=== PATIENT | female | born 1985 | race Caucasian/White ===

== ENCOUNTER 2020-12-30 15:43 | Emergency (ER) | payer SELFPAY ==
[2020-12-30 15:50] VITALS: BP 125/79; PULSE 82; RESP 17; TEMP 36.9; O2SAT 98; BMI 29.0
[2020-12-30 16:03] VITALS: BP 119/77; PULSE 83; TEMP 36.8; O2SAT 97
--- NOTE | 2020-12-30 16:40 | ECG_ITS ---
[facility] Test Date: 2020-12-30 Pat Name: Cathie Polk Department: Room: Gender: Female Analysis Analyst: : 1985 Requested By: Rajan Doherty Order Number: [id number] Ramu MD: Anisha Byrne M.D. Measurements Intervals [place] Rate: 68 P: 29 CO: 145 QRS: 35 QRSD: 78 T: 50 QT: 384 QTc: 411 Interpretive Statements SINUS RHYTHM Compared to ECG 10/02/2017 23:13:38 Sinus arrhythmia no longer present Electronically Signed On 12-31-2020 9:02:53 CDT by Anisha Byrne M.D. [email or web address]
--- NOTE | 2020-12-30 16:40 | XRR_ITS ---
PROCEDURE INFORMATION: Exam: XR Chest Exam date and time: 12/30/2020 4:40 PM Age: 35 years old Clinical indication: Other: Back pain TECHNIQUE: Imaging protocol: XR of the chest. Views: 2 views. COMPARISON: No relevant prior studies available. FINDINGS: Lungs: The lungs are hyperinflated but clear. No consolidation. There is a 1 cm calcified granuloma lateral left lung. Pulmonary vascularity is within normal limits. Pleural spaces: Unremarkable. No pleural effusion. No pneumothorax. Heart/Mediastinum: Unremarkable. No cardiomegaly. Bones/joints: Unremarkable. XR/XR chest 2V* [id number] IMPRESSION: No acute findings. Calcified pulmonary granuloma is noted.
--- NOTE | 2020-12-30 16:40 | XRR_ITS ---
PROCEDURE INFORMATION: Exam: XR Lumbosacral Spine Exam date and time: 12/30/2020 4:40 PM Age: 35 years old Clinical indication: Low back pain TECHNIQUE: Imaging protocol: XR of the lumbosacral spine. Views: 2 or 3 views. COMPARISON: No relevant prior studies available. FINDINGS: Bones/joints: There are moderate facet degenerative changes at L5-S1. There is slight disc space narrowing at L5-S1 in the remaining disc spaces are preserved. No subluxation. No spondylolysis. No acute fracture. Normal alignment. Soft tissues: Unremarkable. XR/XR lumbar spine 2-3V* [id number] IMPRESSION: No acute findings.
--- NOTE | 2020-12-30 16:58 | ED_ITS ---
HPI - General Adult General: Chief complaint: Neuro Symptoms/Deficit Stated complaint: Pain and tingly on right side of body Time Seen by Provider: 12/30/20 15:58 History of Present Illness: HPI narrative: Patient is a 35-year-old female with no significant past medical history presents the emergency room with complaints of left upper back pain that shoots towards the head and the neck. Patient has pain for started while she was sleeping this morning when she noticed a pop sensation. Patient denies any trauma fall or injury to the back previously recently. Since then, patient has sharp spasming shooting pain from the back to the arm into the neck. Patient denies any history of cardiac issues, social history of smoking, history of aortic diseases including aneurysm, or valvular diseases. In triage note patient noted to have difficulty squeezing, however patient denies ANY reports of weakness or numbness today or prior. No other complaints, nausea/vomiting, diaphoresis, abdominal complaints, fever/chills, or chest pain, shortness of breath or palpitation. Onset: 17 hrs ago Duration:17 hrs Location:home Severity: moderate Review of Systems Narrative: Constitutional: No fever, no chills. HEENT: No vision changes CV: No chest pain, no palpitations PULM: no cough, no dyspnea. GI: No abdominal pain, no N/V/D. : No dysuria MSKEL: No muscle pain, +L upper back pain that radiates to the L arm and neck SKIN: No new rashes, no lesions. NEURO: No headache, no focal weakness. HEME: No visible bruises PSYCH: Normal mood PFSH ED PFSH: Social History Current gender identity: Female Female Reproductive History: Date of last menstrual period: 07/22/20 Physical Exam Narrative: EXAM NARRATIVE: Head: Atraumatic Eyes: PERRL, conjunctiva without injection ENT: Mucous membrane moist NECK: Supple, ROM intact LUNGS: LCTAB, no crackles/rhonchi CV: RRR ABDOMEN: Soft, nontender in all quadrants EXTREMITY: Normal ROM, 2+ radial pulses b/l SKIN: No rash or erythema NEURO: A&O x 3. Sensation intact. Motor strength 5/5 all extremeties. [id number] ? Motor examination? Normal bulk & tone. Strength as follows (R/L): Delts (5/5), Biceps (5/5), Triceps (5/5), Wrist ext (5/5), hip flexors (5/5), plantarflexors (5/5), dorsiflexors (5/5). Sensation? Light Touch: Grossly intact and equal in upper and lower extremities bilaterally? Romberg: Negative.? Distal joint position sense intact ? Gait/stance? Steady, normal narrow base gait with appropriate arm swing and turning.? Tandem gait without hesitation or loss of balance. PSYCH: Normal mood and affect BACK: +mild thoracic T7 level tendernes to palpation, no palpable knots, no step-off, no visible signs of infection Course Vital Signs: Vital signs: Vital Signs Temperature 98.2 F 12/30/20 16:03 Pulse Rate 67 12/30/20 17:13 Respiratory Rate 17 12/30/20 15:50 Blood Pressure 109/85 12/30/20 17:47 Pulse Oximetry 99 12/30/20 17:47 MDM - General Adult MDM Narrative: Medical decision making narrative: Patient is a 35-year-old female who presents to the emergency room with complaints of left thoracic back pain that shoots towards the left arm and neck. On exam, patient has mild tenderness palpation at level of T7. Otherwise no focal neurological deficits noted. EKG showing regular sinus rhythm at HT of [68]. Normal axis. No ST elevations/depressions to suggest coronary occlusion. Normal WV, QRS, QT in tervals. Chest x-ray and thoracic history did not show any signs of acute fracture dislocation or other signs of pulmonary pathologies or vertebral injury. Patient received lidocaine patch, Toradol, and tylenol in the ER with significant improvement in pain. She is fully able to range her shoulders without any difficulty. No suspicion for acute neurological deficits. I have no suspicion for ACS or aortic dissection at this time given consternation of symptoms (no chest pain, family hx, no widened mediastinum, reassuring EKG, no other risk factors). Symptoms today likely musculoskeletal pain. Rx lidocaine patch, norflex, tylenol PRN pain Disposition Discharge. Patient is given strict return precaution for any worsening pain, fever/chills, nausea/vomiting, or any new or concerning com plaints. Patient is also given follow-up with our orthopedic provider. Our corrections caseworker will contact you in the next few days. Imaging Data^: Other Imaging: Radiologist's impression: [address], [place] [address]IVcs ReportSigned Patient: Cathie Polk #: [id number]: 1985Acct# :[id number]/Sex: 35 / FADM Date: 12/30/20Loc: ERRoom/Bed:Attending Dr: Ordering Provider/Ordering MD: Rajan Doherty MD Date of Service: 12/30/20 Procedure(s): XR thoracic spine 2V 37404 Accession Number(s): [id number] Report Number: [id number] PROCEDURE INFORMATION: Exam: XR Thoracic Spine Exam date and time: 12/30/2020 5:09 PM Age: 35 years old Clinical indication: Pain in thoracic spine; Additional info: Evaluate for pain TECHNIQUE: Imaging protocol: XR of the thoracic spine. Views: 3 views. COMPARISON: CR (PELVIS, ) 12/30/2020 4:47 PM FINDINGS: Bones/joints: Normal. No acute fracture. Normal alignment. Soft tissues: Unremarkable. XR/XR thoracic spine 2V 46000 IMPRESSION: No acute findings. Dictated By:Courtney Pierceigned By:Lucas Pierce Date/Time:12/30/20 1734DD/ [address], [place] [address]QVqa ReportSigned Patient: Cathie Polk #: [id number]: 1985Acct#:[id number]/Sex: 35 / FADM Date: 12/30/20Loc: ERRoom/Bed:Attending Dr: Ordering Provider/Ordering MD: Rajan Doherty MD Date of Service: 12/30/20 Procedure(s): XR lumbar spine 2-3V* 82434 Accession Number(s): [id number] Report Number: [id number] PROCEDURE INFORMATION: Exam: XR Lumbosacral Spine Exam date and time: 12/30/2020 4:40 PM Age: 35 years old Clinical indication: Low back pain TECHNIQUE: Imaging protocol: XR of the lumbosacral spine. Views: 2 or 3 views. COMPARISON: No relevant prior studies available. FINDINGS: Bones/joints: There are moderate facet degenerative changes at L5-S1. There is slight disc space narrowing at L5-S1 in the remaining disc spaces are preserved. No subluxation. No spondylolysis. No acute fracture. Normal alignment. Soft tissues: Unremarkable. XR/XR lumbar spine 2-3V* 24052 IMPRESSION: No acute findings. Dictated By:Lucas Pierce By:Lucas Pierce Date/Time:12/30/20 1732DD/ [address] [address]EVcd ReportSigned Patient: Cathie Polk #: [id number]: 1985Acct#:[id number]/Sex: 35 / FADM Date: 12/30/20[facility]Attending Dr: Ordering Provider/Ordering MD: Rajan Doherty MD Date of Service: 12/30/20 Procedure(s): XR chest 2V* 25227 Accession Number(s): [id number] Report Number: [id number] PROCEDURE INFORMATION: Exam: XR Chest Exam date and time: 12/30/2020 4:40 PM Age: 35 years old Clinical indication: Other: Back pain TECHNIQUE: Imaging protocol: XR of the chest. Views: 2 views. COMPARISON: No relevant prior studies available. FINDINGS: Lungs: The lungs are hyperinflated but clear. No consolidation. There is a 1 cm calcified granuloma lateral left lung. Pulmonary vascularity is within normal limits. Pleural spaces: Unremarkable. No pleural effusion. No pneumothorax. Heart/Mediastinum: Unremarkable. No cardiomegaly. Bones/joints: Unremarkable. XR/XR chest 2V* 49670 IMPRESSION: No acute findings. Calcified pulmonary granuloma is noted. Dictated By:Lucas Pierce By:Lucas Pierce Date/Time:12/30/20 1733DD/ 1733 Discharge Plan Discharge Patient Disposition: Home Clinical Impression: Back pain Condition: Stable Prescriptions: New acetaminophen 500 mg tablet 500 mg PO Q6H PRN (Reason: pain) 7 Days Qty: 28 RF: 0 orphenadrine citrate 100 mg tablet extended release 100 mg PO BID PRN (Reason: pain) 7 Days RF: 0 lidocaine 4 % adhesive patch,medicated 1 patch topical DAILY PRN (Reason: pain) 7 Days Qty: 7 RF: 0 Discharge Orders: Discharge ED (Routine); Ordered 12/30/20 Ordered By: Rajan Doherty Referrals: Fernie Murillo MD [Primary Care Provider] - Discharge Diet: Advance as tolerated Discharge Activity: Resume usual activity Patient Instructions: Back Pain (ED) Activity Restrictions/Additional Instructions: Come back to the emergency room if you your pain worsens, if you have any fever or chills, are unable to range her arms, or if you have any new or concerning complaints. Coding Level of Care Code ED Etcher [employer] for Bisi Cheema
[2020-12-30] MEDS: gabapentin 100 mg Capsule 200 MG PO (17:07)
[2020-12-30] MEDS: acetaminophen 500 mg Tablet 1000 MG PO (17:07)
[2020-12-30] MEDS: ketorolac 30 mg/mL INJ IM (17:09)
--- NOTE | 2020-12-30 17:09 | XRR_ITS ---
PROCEDURE INFORMATION: Exam: XR Thoracic Spine Exam date and time: 12/30/2020 5:09 PM Age: 35 years old Clinical indication: Pain in thoracic spine; Additional info: Evaluate for pain TECHNIQUE: Imaging protocol: XR of the thoracic spine. Views: 3 views. COMPARISON: CR (PELVIS, ) 12/30/2020 4:47 PM FINDINGS: Bones/joints: Normal. No acute fracture. Normal alignment. Soft tissues: Unremarkable. XR/XR thoracic spine 2V 70021 IMPRESSION: No acute findings.
[2020-12-30] MEDS: lidocaine 5% Patch 1 PATCH TOPICAL (17:10)
[2020-12-30 17:13] VITALS: PULSE 67; O2SAT 100
[2020-12-30 17:47] VITALS: BP 109/85; O2SAT 99
== END 2020-12-30 17:44 | disposition home or self-care (01) ==
PROVIDERS: Emergency Provider Emergency Medicine; PCP Family Medicine
DX: M54.9 Dorsalgia, unspecified (principal)
CPT/HCPCS: 71046; 72070; 72100; 93005; 96372; 99283; J1885

== ENCOUNTER 2023-12-15 20:27 | Emergency (ER) | payer SELFPAY ==
[2023-12-15 20:32] VITALS: BP 126/81; PULSE 116; RESP 17; TEMP 36.6; O2SAT 98; BMI 25.0
[2023-12-15 20:54] LABS: Charge for UA Resulting for Rev
[2023-12-15 20:59] LABS: Bacteria Urine 1+ /hpf; Hyaline Casts Urine 0-4 /lpf; RBC Urine >100 /hpf (0-2); Squamous Epithelial Cell Urine 0-5 /hpf (0-5); WBC Urine >100 /hpf (0-5)
[2023-12-15 21:08] LABS: Bilirubin Urine 2+ (Negative); Blood Urine 3+ (Negative); Glucose Urine UA Negative (Normal); Ketones Urine Negative (Negative); Leukocyte Esterase Urine 2+ (Negative); Nitrate Urine Positive (Negative); Protein Urine 2+ (Negative); Specific Gravity, Urine 1.011 (1.005-1.030); Urine Appearance Turbid (CLEAR); pH Urine 6.5 (5-7)
[2023-12-15 21:13] LABS: Basophils % 0.4 %; Eosinophils # 0.1 10^3/uL (0.0-0.8); Hematocrit 42.4 % (36-47); Lymphocytes # 2.1 10^3/uL (0.8-4.8); Lymphocytes % 21.4 %; Mean Corpuscular HGB Conc 33.5 g/dL (30-55); Mean Corpuscular Hemoglobin 29.6 pg (27-33); Mean Corpuscular Volume 88.3 fl (85-98); Mean Platelet Volume 10.4 fL (7.4-10.4); Monocytes # 0.6 10^3/uL (0.2-0.9); Monocytes % 6.6 %; Neutrophils # 6.85 10^3/uL (1.8-7.7); Neutrophils % 70.4 %; Nucleated Red Blood Cells % 0 %; Platelet Count 323 10^3/cmm (157-399); Red Cell Distribution Width 11.6 % (12.1-15.1); White Blood Count 9.73 10^3/uL (3.29-11.43)
[2023-12-15 21:14] LABS: Urine Color Red (Yellow)
[2023-12-15 21:16] LABS: Add Urine Culture? Yes
[2023-12-15 21:22] LABS: UA Slide Review UA Slide Review Perf
[2023-12-15 21:32] LABS: Lactic Sepsis W/Reflex 2.1 mmol/L (0.5-2.2)
[2023-12-15 21:36] LABS: Alanine Aminotransferase 9 U/L (0-33); Albumin Level 4.4 g/dL (3.5-5.2); Alkaline Phosphatase 72 U/L (35-105); Anion Gap 16.9 (5-19); Aspartate Amino Transferase 7 U/L (0-32); Blood Urea Nitrogen 9 mg/dL (6-20); Carbon Dioxide 24 mmol/L (22-29); Chloride 102 mmol/L (98-107); Creatinine Clr Calc Pharmacy 86.9032; Globulin 2.9 g/dL (1.3-4.6); Glomerular Filtration Rate 70.8 mL/min (90-130); Glucose 93 mg/dL (65-115); Osmolality Calculated 286 mOsm/kg (285-295); Potassium 3.9 mmol/L (3.5-5.1); Sodium 139 mmol/L (136-145); Total Bilirubin 0.5 mg/dL (0.15-1.2); Total Protein 7.3 g/dL (6.6-8.7)
[2023-12-15 22:58] LABS: Reflex Lactate Order REFLEX LACTIC ORDERD
--- NOTE | 2023-12-15 23:19 | CTR_ITS ---
PROCEDURE INFORMATION: Exam: CT Abdomen And Pelvis With Contrast Exam date and time: 12/15/2023 11:40 PM Age: 38 years old Clinical indication: Abdominal pain; Localized; Right lower quadrant (rlq); Prior surgery; Surgery date: 6+ months; Surgery type: Bilat salpingectomy; Patient HX: C/O rlq pain with excessive vaginal bleeding. States having an abnormally long menstrual cycle going on fifteen days. ; Additional info: Rlq abd pain, profuse vaginal bleeding TECHNIQUE: Imaging protocol: Computed tomography of the abdomen and pelvis with contrast. Radiation optimization: All CT scans at this facility use at least one of these dose optimization techniques: automated exposure control; mA and/or kV adjustment per patient size (includes targeted exams where dose is matched to clinical indication); or iterative reconstruction. Contrast material: OMNI 350; Contrast volume: 100 ml; Contrast route: INTRAVENOUS (IV); COMPARISON: CR XR lumbar spine 2-3V* 10265 12/30/2020 4:47 PM RADIATION DOSE METRICS: Total DLP (mGy-cm): 503.22 FINDINGS: Liver: There is a hypodense structure measuring 2.3 cm in the posterior aspect of the right lobe of the liver measuring 57 Hounsfield units. This is incompletely assessed on this examination and a three-phase liver CT or liver MRI may help to more fully characterize this finding. Gallbladder and biliary ducts: Normal. No calcified stones. No ductal dilation. Pancreas: Normal. No ductal dilation. Spleen: Normal. No splenomegaly. Adrenal glands: Normal. No mass. Kidneys and ureters: Bilateral simple appearing renal cysts are present which do not need further follow-up, as well as other subcentimeter hypodensities which are too small to adequately characterize. Stomach and bowel: Unremarkable. No obstruction. No mucosal thickening. Appendix: No evidence of appendicitis. Intraperitoneal space: Unremarkable. No free air. No significant fluid collection. Vasculature: Unremarkable. No abdominal aortic aneurysm. Lymph nodes: Unremarkable. No enlarged lymph nodes. Urinary bladder: Unremarkable as visualized. Reproductive: There is a 20 mm x 8 mm soft tissue density within the endometrial of the uterus extending from the fundus which may represent a pedunculated fibroid or endometrial lesion. This is incompletely assessed on this examination and a sonohysterogram may be of benefit to more fully characterize this finding. Bones/joints: Unremarkable. No acute fracture. Soft tissues: Unremarkable. CT/CT abdomen pelvis w con* [id number] IMPRESSION: 1. There is a 20 mm x 8 mm soft tissue density within the endometrial of the uterus extending from the fundus which may represent a pedunculated fibroid or endometrial lesion. This is incompletely assessed on this examination and a sonohysterogram may be of benefit to more fully characterize this finding. 2. There is a hypodense structure measuring 2.3 cm in the posterior aspect of the right lobe of the liver measuring 57 Hounsfield units. This is incompletely assessed on this examination and a three-phase liver CT or liver MRI may help to more fully characterize this finding. COMMENTS: Consistent with the [place] [employer]'s Incidental Findings Committee white paper (J Am Sarah Radiol 2018): Any incidental renal lesion less than 1 cm or classified as too small to characterize, or any incidental cystic renal lesion characterized as simple-appearing, is likely benign. No follow-up imaging is recommended for these lesions per consensus recommendations based on imaging criteria.
[2023-12-15 23:24] VITALS: BP 115/77; PULSE 86; RESP 16; O2SAT 99
[2023-12-15] MEDS: iohexol 350 mg/mL 500 mL Btl (per mL) IV (23:37)
[2023-12-15] MEDS: ondansetron 2 mg/ML SDV 2 mL 4 MG IVP (23:37)
[2023-12-15 23:39] VITALS: RESP 16
[2023-12-15] MEDS: morphine 4 mg/mL SDV 1 mL IVP (23:39)
[2023-12-15 23:40] LABS: Lactic Acid level (Lactate) 0.7 mmol/L (0.5-2.2)
--- NOTE | 2023-12-15 23:45 | W.ED.FEMALGU ---
Documented by User: ARABELLA Nicole 12/16/23 00:56 HPI - Female Genitourinary General: Chief complaint: Urogenital-Female Stated complaint: day 15 of period very heavy pain in right in back Time Seen by Provider: 12/15/23 23:04 Source: patient Mode of arrival: ambulatory Limitations: no limitations History of Present Illness: Patient is a 38-year-old female presenting to the emergency department planing of right lower quadrant abdominal pain onset past week. She states that she has been on her menstrual cycle for the past 15 days and it has significantly worsened and gotten more heavy over the past 5 days. She is passing numerous clots to where she states she bleeds through pads constantly. History of salpingectomy, still has her ovaries. Still has her appendix and gallbladder, history of hernia repair. The pain in her right lower quadrant is noted to radiate to her back and down her right lower extremity. She is also reporting nausea and vomiting at this time. No urinary symptoms are reported, no changes in bowel habits, no fevers, and no other symptoms to report at this time. Is requesting something for pain. Onset (ago): week(s) Location of symptoms: RLQ Severity: severe Consistency: constant and progressively worsening Vaginal discharge: none Vaginal bleeding: heavy and clots Associated symptoms: Reports abdominal pain and nausea; Deny headache(s) Patient : No Related Data Previous Rx's Medication Instructions Recorded clonazepam 0.5 mg tablet 0.5 mg PO BID #60 tabs 10/22/23 cefdinir 300 mg capsule 300 mg PO BID 10 days #20 caps 12/16/23 hydrocodone 7.5 mg-acetaminophen 1 tab PO Q8H PRN pain #20 tabs 12/16/23 325 mg tablet medroxyprogesterone 5 mg tablet 5 mg PO DAILY 10 days #10 tabs 12/16/23 (Provera) ondansetron HCl 4 mg tablet 4 mg PO Q8H #30 tabs 12/16/23 Allergies Allergy/AdvReac Type Severity Reaction Status Date / Time vancomycin Allergy caused red Verified 12/15/23 20:37 man syndrome Review of Systems General: Reports: 10 or more systems reviewed and unremarkable except in HPI and below Const: Denies: fever(s), chills, change in appetite, change in weight or diaphoresis ENMT: Denies: throat pain or hoarseness Card: Denies: chest pain, palpitations or lightheadedness Resp: Denies: dyspnea, productive cough or wheezing GI: Reports: abdominal pain, nausea and vomiting; Denies: diarrhea, constipation, bloating, change in stool character or hematochezia : Reports: vaginal bleeding; Denies: flank pain, difficulty voiding, dysuria, urinary frequency or urinary urgency Musc: Reports: back pain; Denies: neck pain Skin/Breast: Denies: rash or new lesions Neuro: Denies: headache(s) or dizziness PFSH ED PFSH: Social History Current gender identity: Female Female Reproductive History: Spontaneous abortions: No Physical Exam Const: COMMON NORMALS: average body habitus, patient oriented x3, no limitations, healthy appearing, alert and well nourished GENERAL APPEARANCE: cooperative and in distress (From pain) ORIENTATION/CONSCIOUSNESS: Yes awake HENMT: COMMON NORMALS: normocephalic, atraumatic, hearing grossly normal bilaterally, external ears normal, Normal external nose present, Normal nasal mucous membranes and turbinates present and moist oral mucous membranes HEAD & SCALP: normocephalic and atraumatic NOSE: Normal external nose present and Normal nasal mucous membranes and turbinates present EXTERNAL EAR: Yes external ears normal Eye: COMMON NORMALS: Equal, round and reactive pupils present, EOMs intact bilaterally, conjunctivae normal and normal visual sanabria by confrontation CONJUNCTIVA: Yes conjunctivae normal PUPIL: Yes Equal, round and reactive pupils present Neck/C-Spine: COMMON NORMALS: full ROM, supple, no meningeal signs and no JVD Resp: COMMON NORMALS: normal respiratory effort, No retractions, No use of accessory muscles and clear to auscultation bilaterally AUSCULTATION: clear to auscultation bilaterally, no crackles, no rales, no rhonchi and no wheezes Cardio: COMMON NORMALS: no JVD, regular rate, regular rhythm, S1 normal heart sound present, S2 normal heart sound present, No gallops present (Cardio), No clicks present (Cardio), No murmurs present (Cardio), No rub (Cardio) and Peripheral pulses 2+ throughout RATE: regular rate RHYTHM: regular rhythm HEART SOUNDS: S1 normal heart sound present and S2 normal heart sound present PERIPHERAL PULSES: Peripheral pulses 2+ throughout GI: COMMON NORMALS: Normal to inspection, nondistended, normoactive bowel sounds present, Soft to palpation, No hepatosplenomegaly present and no masses AUSCULTATION: Yes normoactive bowel sounds PALPATION: Yes Soft to palpation, Yes Tenderness to palpation present (GI) Details: RLQ (Negative Rovsing's), No Guarding due to palpation present (GI), No Rigid due to palpation and Yes No hepatosplenomegaly present RECTAL EXAM: deferred : COMMON NORMALS: Yes no CVA tenderness BLADDER/KIDNEY EXAM: Yes no CVA tenderness Back/Pelvis: COMMON NORMALS: no CVA tenderness Extremity: COMMON NORMALS: normal to inspection and full ROM Neuro: COMMON NORMALS: patient oriented x3, moves all extremities, no focal motor deficits and no sensory deficits noted SENSORIUM/ORIENTATION: Yes alert MENINGEAL SIGNS: Yes no meningeal signs Psych: COMMON NORMALS: mental status grossly normal, cooperative and speech normal SPEECH: Yes normal speech Skin: COMMON NORMALS: no rashes or lesions noted GENERAL SKIN EXAM: no rashes or lesions noted Course Vital Signs: Vital signs: Vital Signs Temperature 98 F 12/15/23 20:32 Pulse Rate 91 12/16/23 01:07 Respiratory Rate 16 12/16/23 01:07 Blood Pressure 114/81 12/16/23 01:07 Pulse Oximetry 99 12/16/23 01:07 Oxygen Delivery Me thod Room Air 12/15/23 23:24 MDM - Female Medical Decision Making This patient presented with going on a week of right lower quadrant abdominal pain as well as copious vaginal bleeding. History of salpingectomy and hernia repair. Vitals on arrival found her to be tachycardic, afebrile, and on examination she did have some tenderness to palpation of the right lower abdomen. Her CBC and CMP unremarkable. Specifically she had a normal hemoglobin and hematocrit. Urinalysis did show quite a bit of blood, nitrates, and white blood cells. CT of the abdomen showed soft tissue mass within the endometrium, likely pedunculated fibroid however this needs to be further assessed with an endometrial biopsy with [facility]. Referral was put in at this time. Patient will be started on Provera for her bleeding, and treated with Zofran and hydrocodone for her nausea and pain, respectively. Will start antibiotics. Return precautions are given. Case discussed with Dr. Cruz who agrees with disposition at this time. Lab Data 12/15/23 20:52 12/15/23 20:52 Radiology Impressions Abdomen/Pelvis CT 12/15/23 23:19 IMPRESSION: 1. There is a 20 mm x 8 mm soft tissue density within the endometrial of the uterus extending from the fundus which may represent a pedunculated fibroid or endometrial lesion. This is incompletely assessed on this examination and a sonohysterogram may be of benefit to more fully characterize this finding. 2. There is a hypodense structure measuring 2.3 cm in the posterior aspect of the right lobe of the liver measuring 57 Hounsfield units. This is incompletely assessed on this examination and a three-phase liver CT or liver MRI may help to more fully characterize this finding. COMMENTS: Consistent with the [employer]'s Incidental Findings Committee white paper (J Am Sarah Radiol 2018): Any incidental renal lesion less than 1 cm or classified as too small to characterize, or any incidental cystic renal lesion characterized as simple-appearing, is likely benign. No follow-up imaging is recommended for these lesions per consensus recommendations based on imaging criteria. Laboratory Results WBC 9.73 10^3/uL (3.29-11.43) 12/15/23 20:52 RBC 4.80 10^6/uL (3.85-5.65) 12/15/23 20:52 Hgb 14.20 g/dL (11.27-16.99) 12/15/23 20:52 Hct 42.4 % (36-47) 12/15/23 20:52 MCV 88.3 fl (85-98) 12/15/23 20:52 MCH 29.6 pg (27-33) 12/15/23 20:52 MCHC 33.5 g/dL (30-55) 12/15/23 20:52 RDW 11.6 % (12.1-15.1) L 12/15/23 20:52 Plt Count 323 10^3/cmm (157-399) 12/15/23 20:52 MPV 10.4 fL (7.4-10.4) 12/15/23 20:52 Neut % (Auto) 70.4 % 12/15/23 20:52 Lymph % (Auto) 21.4 % 12/15/23 20:52 [place] % (Auto) 6.6 % 12/15/23 20:52 Eos % (Auto) 1.0 % 12/15/23 20:52 Baso % (Auto) 0.4 % 12/15/23 20:52 Neut # (Auto) 6.85 10^3/uL (1.8-7.7) 12/15/23 20:52 Lymph # (Auto) 2.1 10^3/uL (0.8-4.8) 12/15/23 20:52 [place] # (Auto) 0.6 10^3/uL (0.2-0.9) 12/15/23 20:52 Eos # (Auto) 0.1 10^3/uL (0.0-0.8) 12/15/23 20:52 Baso # (Auto) 0.0 10^3/uL (0.0-0.1) 12/15/23 20:52 Nucleated RBC % (auto) 0 % 12/15/23 20:52 Nucleated RBCs # 0.0 /100WBC 12/15/23 20:52 Sodium 139 mmol/L (136-145) 12/15/23 20:52 Potassium 3.9 mmol/L (3.5-5.1) 12/15/23 20:52 Chloride 102 mmol/L (98-107) 12/15/23 20:52 Carbon Dioxide 24 mmol/L (22-29) 12/15/23 20:52 Anion Gap 16.9 (5-19) 12/15/23 20:52 BUN 9 mg/dL (6-20) 12/15/23 20:52 Creatinine 0.9 mg/dL (0.5-0.9) 12/15/23 20:52 GFR Calculation 70.8 mL/min (90-130) L 12/15/23 20:52 Glucose 93 mg/dL (65-115) 12/15/23 20:52 Calculated Osmolality 286 mOsm/kg (285-295) 12/15/23 20:52 Lactic Acid 2.1 mmol/L (0.5-2.2) 12/15/23 20:52 Lactic Acid (Sepsis) 0.7 mmol/L (0.5-2.2) 12/15/23 23:21 Calcium 9.0 mg/dL (8.5-10.5) 12/15/23 20:52 Total Bilirubin 0.5 mg/dL (0.15-1.2) 12/15/23 20:52 AST 7 U/L (0-32) 12/15/23 20:52 ALT 9 U/L (0-33) 12/15/23 20:52 Alkaline Phosphatase 72 U/L (35-105) 12/15/23 20:52 Total Protein 7.3 g/dL (6.6-8.7) 12/15/23 20:52 Albumin 4.4 g/dL (3.5-5.2) 12/15/23 20:52 Globulin 2.9 g/dL (1.3-4.6) 12/15/23 20:52 Ser , Semi-Qnt 1.00 mIU/mL 12/15/23 20:52 Urine Color Red (Yellow) A 12/15/23 20:42 Urine Appearance Turbid (CLEAR) A 12/15/23 20:42 Urine pH 6.5 (5-7) 12/15/23 20:42 Ur Specific [place] 1.011 (1.005-1.030) 12/15/23 20:42 Urine Protein 2+ (Negative) A 12/15/23 20:42 Urine Glucose (UA) Negative (Normal) 12/15/23 20: Urine Ketones Negative (Negative) 12/15/23 20:42 Urine Blood 3+ (Negative) A 12/15/23 20:42 Urine Nitrate Positive (Negative) A 12/15/23 20:42 Urine Bilirubin 2+ (Negative) H 12/15/23 20:42 Urine Urobilinogen 1.0 mg/dL (Negative) 12/15/23 20:42 Ur Leukocyte Esterase 2+ (Negative) A 12/15/23 20:42 Urine RBC >100 /hpf (0-2) H 12/15/23 20:42 Urine WBC >100 /hpf (0-5) H 12/15/23 20:42 Ur Squamous Epith Cells 0-5 /hpf (0-5) 12/15/23 20:42 Amorphous Sediment Not Reportable 12/15/23 20:42 Urine Bacteria 1+ /hpf (NONE) H 12/15/23 20:42 Hyaline Casts 0-4 /lpf H 12/15/23 20:42 All radiology interpretation(s) finalized by discharge Discharge Plan Discharge Patient Disposition: Home Clinical Impression: Abnormal uterine bleeding, Lesion of endometrium Condition: Stable Prescriptions: New Provera 5 mg tablet 5 mg PO DAILY 10 Days Qty: 10 0RF Rx Instructions: begin day 16 of cycle ondansetron HCl 4 mg tablet 4 mg PO Q8H Qty: 30 0RF hydrocodone-acetaminophen 7.5-325 mg tablet 1 tab PO Q8H PRN (Reason: pain) Qty: 20 0RF cefdinir 300 mg capsule 300 mg PO BID 10 Days Qty: 20 0RF No Action clonazepam 0.5 mg tablet 0.5 mg PO BID Qty: 60 1RF Discharge Orders: Discharge ED (Routine); Ordered 12/16/23 Ordered By: Philip Bey Referrals: Keiry Noel FNP [Primary Care Provider] - Discharge Diet: Usual diet Discharge Activity: Increase activity as tolerated Patient Instructions: Abnormal (Dysfunctional) Uterine Bleeding (ED), Endometrial Biopsy (DC) Activity Restrictions/Additional Instructions: Follow-up with [facility] next week as discussed. Take pain medications as prescribed. Zofran for nausea. Take Provera as prescribed. If you develop any new or worsening symptoms, please return for reevaluation. Coding Level of Care Code ED [employer] Super[employer] for [place] Documented by User: Jagjit Cruz DO 12/16/23 02:03 HPI - Female Genitourinary General: Chief complaint: Urogenital-Female Stated complaint: day 15 of period very heavy pain in right in back Time Seen by Provider: 12/15/23 23:04 Related Data Previous Rx's Medication Instructions Recorded clonazepam 0.5 mg tablet 0.5 mg PO BID #60 tabs 10/22/23 cefdinir 300 mg capsule 300 mg PO BID 10 days #20 caps 12/16/23 hydrocodone 7.5 mg-acetaminophen 1 tab PO Q8H PRN pain #20 tabs 12/16/23 325 mg tablet medroxyprogesterone 5 mg tablet 5 mg PO DAILY 10 days #10 tabs 12/16/23 (Provera) ondansetron HCl 4 mg tablet 4 mg PO Q8H #30 tabs 12/16/23 Allergies Allergy/AdvReac Type Severity Reaction Status Date / Time vancomycin Allergy caused red Verified 12/15/23 20:37 man syndrome PFSH ED PFSH: Social History Current gender identity: Female Course Vital Signs: Vital signs: Vital Signs Temperature 98 F 12/15/23 20:32 Pulse Rate 91 12/16/23 01:07 Respiratory Rate 16 12/16/23 01:07 Blood Pressure 114/81 12/16/23 01:07 Pulse Oximetry 99 12/16/23 01:07 Oxygen Delivery Me thod Room Air 12/15/23 23:24 MDM - Female Medical Decision Making This patient presented with going on a week of right lower quadrant abdominal pain as well as copious vaginal bleeding. History of salpingectomy and hernia repair. Vitals on arrival found her to be tachycardic, afebrile, and on examination she did have some tenderness to palpation of the right lower abdomen. Her CBC and CMP unremarkable. Specifically she had a normal hemoglobin and hematocrit. Urinalysis did show quite a bit of blood, nitrates, and white blood cells. CT of the abdomen showed soft tissue mass within the endometrium, likely pedunculated fibroid however this needs to be further assessed with an endometrial biopsy with [facility]. Referral was put in at this time. Patient will be started on Provera for her bleeding, and treated with Zofran and hydrocodone for her nausea and pain, respectively. Will start antibiotics. Return precautions are given. Case discussed with Dr. Cruz who agrees with disposition at this time. This patient was originally seen by Mr. Maida PA-C.? I agree with his history, evaluation, and treatment. Lab Data 12/15/23 20:52 12/15/23 20:52 Radiology Impressions Abdomen/Pelvis CT 12/15/23 23:19 IMPRESSION: 1. There is a 20 mm x 8 mm soft tissue density within the endometrial of the uterus extending from the fundus which may represent a pedunculated fibroid or endometrial lesion. This is incompletely assessed on this examination and a sonohysterogram may be of benefit to more fully characterize this finding. 2. There is a hypodense structure measuring 2.3 cm in the posterior aspect of the right lobe of the liver measuring 57 Hounsfield units. This is incompletely assessed on this examination and a three-phase liver CT or liver MRI may help to more fully characterize this finding. COMMENTS: Consistent with the [employer]'s Incidental Findings Committee white paper (J Am Sarah Radiol 2018): Any incidental renal lesion less than 1 cm or classified as too small to characterize, or any incidental cystic renal lesion characterized as simple-appearing, is likely benign. No follow-up imaging is recommended for these lesions per consensus recommendations based on imaging criteria. Laboratory Results WBC 9.73 10^3/uL (3.29-11.43) 12/15/23 20:52 RBC 4.80 10^6/uL (3.85-5.65) 12/15/23 20:52 Hgb 14.20 g/dL (11.27-16.99) 12/15/23 20:52 Hct 42.4 % (36-47) 12/15/23 20:52 MCV 88.3 fl (85-98) 12/15/23 20:52 MCH 29.6 pg (27-33) 12/15/23 20:52 MCHC 33.5 g/dL (30-55) 12/15/23 20:52 RDW 11.6 % (12.1-15.1) L 12/15/23 20:52 Plt Count 323 10^3/cmm (157-399) 12/15/23 20:52 MPV 10.4 fL (7.4-10.4) 12/15/23 20:52 Neut % (Auto) 70.4 % 12/15/23 20:52 Lymph % (Auto) 21.4 % 12/15/23 20:52 [place] % (Auto) 6.6 % 12/15/23 20:52 Eos % (Auto) 1.0 % 12/15/23 20:52 Baso % (Auto) 0.4 % 12/15/23 20:52 Neut # (Auto) 6.85 10^3/uL (1.8-7.7) 12/15/23 20:52 Lymph # (Auto) 2.1 10^3/uL (0.8-4.8) 12/15/23 20:52 [place] # (Auto) 0.6 10^3/uL (0.2-0.9) 12/15/23 20:52 Eos # (Auto) 0.1 10^3/uL (0.0-0.8) 12/15/23 20:52 Baso # (Auto) 0.0 10^3/uL (0.0-0.1) 12/15/23 20:52 Nucleated RBC % (auto) 0 % 12/15/23 20:52 Nucleated RBCs # 0.0 /100WBC 12/15/23 20:52 Sodium 139 mmol/L (136-145) 12/15/23 20:52 Potassium 3.9 mmol/L (3.5-5.1) 12/15/23 20:52 Chloride 102 mmol/L (98-107) 12/15/23 20:52 Carbon Dioxide 24 mmol/L (22-29) 12/15/23 20:52 Anion Gap 16.9 (5-19) 12/15/23 20:52 BUN 9 mg/dL (6-20) 12/15/23 20:52 Creatinine 0.9 mg/dL (0.5-0.9) 12/15/23 20:52 GFR Calculation 70.8 mL/min (90-130) L 12/15/23 20:52 Glucose 93 mg/dL (65-115) 12/15/23 20:52 Calculated Osmolality 286 mOsm/kg (285-295) 12/15/23 20:52 Lactic Acid 2.1 mmol/L (0.5-2.2) 12/15/23 20:52 Lactic Acid (Sepsis) 0.7 mmol/L (0.5-2.2) 12/15/23 23:21 Calcium 9.0 mg/dL (8.5-10.5) 12/15/23 20:52 Total Bilirubin 0.5 mg/dL (0.15-1.2) 12/15/23 20:52 AST 7 U/L (0-32) 12/15/23 20:52 ALT 9 U/L (0-33) 12/15/23 20:52 Alkaline Phosphatase 72 U/L (35-105) 12/15/23 20:52 Total Protein 7.3 g/dL (6.6-8.7) 12/15/23 20:52 Albumin 4.4 g/dL (3.5-5.2) 12/15/23 20:52 Globulin 2.9 g/dL (1.3-4.6) 12/15/23 20:52 Ser , Semi-Qnt 1.00 mIU/mL 12/15/23 20:52 Urine Color Red (Yellow) A 12/15/23 20:42 Urine Appearance Turbid (CLEAR) A 12/15/23 20:42 Urine pH 6.5 (5-7) 12/15/23 20:42 Ur Specific [place] 1.011 (1.005-1.030) 12/15/23 20:42 Urine Protein 2+ (Negative) A 12/15/23 20:42 Urine Glucose (UA) Negative (Normal) 12/15/23 20:42 Urine Ketones Negative (Negative) 12/15/23 20:42 Urine Blood 3+ (Negative) A 12/15/23 20:42 Urine Nitrate Positive (Negative) A 12/15/23 20:42 Urine Bilirubin 2+ (Negative) H 12/15/23 20:42 Urine Urobilinogen 1.0 mg/dL (Negative) 12/15/23 20:42 Ur Leukocyte Esterase 2+ (Negative) A 12/15/23 20:42 Urine RBC >100 /hpf (0-2) H 12/15/23 20:42 Urine WBC >100 /hpf (0-5) H 12/15/23 20:42 Ur Squamous Epith Cells 0-5 /hpf (0-5) 12/15/23 20:42 Amorphous Sediment Not Reportable 12/15/23 20:42 Urine Bacteria 1+ /hpf (NONE) H 12/15/23 20:42 Hyaline Casts 0-4 /lpf H 12/15/23 20:42 Discharge Plan Discharge Patient Disposition: Home Clinical Impression: Abnormal uterine bleeding, Lesion of endometrium Condition: Stable Prescriptions: New Provera 5 mg tablet 5 mg PO DAILY 10 Days Qty: 10 0RF Rx Instructions: begin day 16 of cycle ondansetron HCl 4 mg tablet 4 mg PO Q8H Qty: 30 0RF hydrocodone-acetaminophen 7.5-325 mg tablet 1 tab PO Q8H PRN (Reason: pain) Qty: 20 0RF cefdinir 300 mg capsule 300 mg PO BID 10 Days Qty: 20 0RF No Action clonazepam 0.5 mg tablet 0.5 mg PO BID Qty: 60 1RF Discharge Orders: Discharge ED (Routine); Ordered 12/16/23 Ordered By: Philip Bey Referrals: Keiry Noel FNP [Primary Care Provider] - Discharge Diet: Usual diet Discharge Activity: Increase activity as tolerated Patient Instructions: Abnormal (Dysfunctional) Uterine Bleeding (ED), Endometrial Biopsy (DC) Activity Restrictions/Additional Instructions: Follow-up with [facility] next week as discussed. Take pain medications as prescribed. Zofran for nausea. Take Provera as prescribed. If you develop any new or worsening symptoms, please return for reevaluation. Coding Level of Care Code ED [employer] Supervisor for [employer]
[2023-12-15] MEDS: sodium chloride 0.9% 1,000 ML 999 ML IV (23:56)
[2023-12-16] MEDS: ondansetron 4 MG Tablet PO (00:52)
[2023-12-16] MEDS: medroxyprogesterone 2.5 mg Tablet 5 MG PO (00:52)
[2023-12-16] MEDS: HYDROcodone-acetaminophen 7.5-325 mg Tablet 1 TAB PO (00:53)
--- NOTE | 2023-12-16 01:00 | PC.NURSE ---
Pt sent home with [place] 5/325 and 4mg Zofran per ARABELLA Bey's orders.
[2023-12-16 01:07] VITALS: BP 114/81; PULSE 91; RESP 16; O2SAT 99
--- NOTE | 2023-12-18 08:12 | DCPLANNER ---
Message sent to OBGYN for referral
== END 2023-12-16 01:09 | disposition home or self-care (01) ==
PROVIDERS: Emergency Medicine; Emergency Provider Physician Assistant; PCP Nurse Practitioner
DX: N93.9 Abnormal uterine and vaginal bleeding, unspecified (principal); N85.9 Noninflammatory disorder of uterus, unspecified
CPT/HCPCS: 36415; 74177; 80053; 81003; 81015; 83605; 84702; 85025; 87086; 96374; 96375; 99285; J2270; J2405; J7030; Q0162; Q9967

== ENCOUNTER 2023-12-19 09:56 | Emergency (ER) | payer SELFPAY ==
[2023-12-19 10:06] VITALS: BP 151/78; PULSE 103; RESP 16; TEMP 36.8; O2SAT 100; BMI 25.0
--- NOTE | 2023-12-19 10:31 | W.ED.ABDPA2 ---
HPI - Abdominal Pain General: Chief Complaint: Abdominal Pain Stated Complaint: Lesions/Pain Time Seen by Provider: 12/19/23 10:07 History of Present Illness: 38-year-old female who presents emergency room with abdominal pain. She was worked up for this last week. She was found to have a uterine lesion and was planning to have been follow-up. However her doctor was out of office this week and she went to see another physician there. There is some sort of mixup in her pain medications and the doctor at the clinic such ibuprofen after the emergency room to be written for any more pain medications. She says bleeding has slowed down some. She not have any dizziness or signs of severe anemia. Says mainly she just needs pain control per appointment next week Related Data Previous Rx's Medication Instructions Recorded clonazepam 0.5 mg tablet 0.5 mg PO BID #60 tabs 10/22/23 cefdinir 300 mg capsule 300 mg PO BID 10 days #20 caps 12/16/23 hydrocodone 5 mg-acetaminophen 325 1 tab PO Q6H PRN pain #14 tabs 12/16/23 mg tablet hydrocodone 7.5 mg-acetaminophen 1 tab PO Q8H PRN pain #20 tabs 12/16/23 325 mg tablet medroxyprogesterone 5 mg tablet 5 mg PO DAILY 10 days #10 tabs 12/16/23 (Provera) ondansetron HCl 4 mg tablet 4 mg PO Q8H #30 tabs 12/16/23 hydrocodone 5 mg-acetaminophen 325 1 tab PO Q6H PRN pain #20 tabs 12/19/23 mg tablet Allergies Allergy/AdvReac Type Severity Reaction Status Date / Time vancomycin Allergy caused red Verified 12/15/23 20:37 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 Skin symptoms: Negative except as documented in HPI. Eye symptoms: Negative except as documented in HPI. ENMT symptoms: Negative except as documented in HPI. Respiratory symptoms: Negative except as documented in HPI. Cardiovascular symptoms: Negative except as documented in HPI. Gastrointestinal symptoms: Negative except as documented in HPI. Genitourinary symptoms: Negative except as documented in HPI. Musculoskeletal symptoms: Negative except as documented in HPI. Neurologic symptoms: Negative except as documented in HPI. Psychiatric symptoms: Negative except as documented in HPI. Endocrine symptoms: Negative except as documented in HPI. PFSH ED PFSH: Social History Current gender identity: Female Female Reproductive History: Spontaneous abortions: No Physical Exam Narrative: EXAM NARRATIVE: General: Alert, no acute distress. Skin: Warm, dry. Head: Normocephalic, atraumatic. Neck: Supple, trachea midline. Eye: Extraocular movements are intact. Ears, nose, mouth and throat: mucosa moist. Cardiovascular: Regular, Normal peripheral perfusion. Respiratory: Lungs are clear to auscultation, respirations are non-labored, breath sounds are equal, Symmetrical chest wall expansion. Gastrointestinal: Soft, Nontender, Non distended Musculoskeletal: Normal ROM, no deformity. Neurological: Alert and oriented, No focal neurological deficit observed. Psychiatric: Cooperative, appropriate mood & affect. Course Vital Signs: Vital signs: Vital Signs Temperature 98.3 F 12/19/23 10:06 Pulse Rate 103 H 12/19/23 10:06 Respiratory Rate 16 12/19/23 10:06 Blood Pressure 151/78 12/19/23 10:06 Pulse Oximetry 100 12/19/23 10:06 MDM - Abdominal Pain Medical Decision Making Assessment and plan: Abdominal pain Dysfunctional uterine bleeding Uterine lesion - Discharged home - Discussed plan with patient. Answered any questions. - Evaluation and treatment of this problem were appropriate in the emergency setting. No radiology studies performed this visit Discharge Plan Discharge Patient Disposition: Home Clinical Impression: Abnormal uterine bleeding, Lesion of endometrium Condition: Stable Prescriptions: New hydrocodone-acetaminophen 5-325 mg tablet 1 tab PO Q6H PRN (Reason: pain) Qty: 20 0RF No Action clonazepam 0.5 mg tablet 0.5 mg PO BID Qty: 60 1RF Provera 5 mg tablet 5 mg PO DAILY 10 Days Qty: 10 0RF Rx Instructions: begin day 16 of cycle ondansetron HCl 4 mg tablet 4 mg PO Q8H Qty: 30 0RF hydrocodone-acetaminophen 7.5-325 mg tablet 1 tab PO Q8H PRN (Reason: pain) Qty: 20 0RF cefdinir 300 mg capsule 300 mg PO BID 10 Days Qty: 20 0RF hydrocodone-acetaminophen 5-325 mg tablet 1 tab PO Q6H PRN (Reason: pain) Qty: 14 0RF Discharge Orders: Discharge ED (Routine); Ordered 12/19/23 Ordered By: Misty Kim Referrals: Keiry Noel FNP [Primary Care Provider] - Discharge Diet: Usual diet Discharge Activity: Increase activity as tolerated Patient Instructions: Abnormal (Dysfunctional) Uterine Bleeding (ED) Activity Restrictions/Additional Instructions: Thank you for choosing [facility] for your healthcare needs today. Please realize this is an emergency room and that we are providing you with a medical screening exam and this may not be complete and all inclusive of all the testing and or work up that you may need to determine your ailment or severity of your illness. You have been screened and evaluated and felt safe for discharge. Health conditions do change or evolve sometimes and as such it is important that you follow up with your Primary Doctor to be re checked, 3-5 days is a general good time frame for follow up. You are always welcome to return to the ED for re assessment if your symptoms are worsening or you have new concerns Coding Level of Care Code ED Tractor Crane Engineer for Bisi Cheema
[2023-12-19 10:39] VITALS: BP 120/74; PULSE 81; RESP 16; O2SAT 98
== END 2023-12-19 10:40 | disposition home or self-care (01) ==
PROVIDERS: Emergency Provider Emergency Medicine; PCP Nurse Practitioner
DX: N93.9 Abnormal uterine and vaginal bleeding, unspecified (principal); N85.9 Noninflammatory disorder of uterus, unspecified
CPT/HCPCS: 99283

== ENCOUNTER → 2023-12-24 10:40 | Outpatient (BNVA) | payer SELFPAY | PROVIDERS: PCP Nurse Practitioner; Visit Provider Nurse Practitioner | DX: N92.0 Excessive and frequent menstruation with regular cycle (principal) | CPT/HCPCS: 85025 ==

== ENCOUNTER 2023-12-27 08:23 | Outpatient (CLI) | payer SELFPAY ==
--- NOTE | 2023-12-27 08:30 | CT_ITS ---
WS: [id number] CT ABDOMEN WITH CONTRAST, multiphase HISTORY: K76.9 - Liver disease, unspecified Multiphase pre and postcontrast imaging through the abdomen. Oral contrast has not been provided. Cor onal and sagittal reformats are submitted. All CT scans at [facility] use at least one of the se dose optimization techniques: automated exposure control; mA and/or kV adjustment per patient size (includes targeted exams where dose is matched to clinical indication); or iterative reconstruction. IV CONTRAST: Omnipaque 350; 100 mL IV. Oral contrast: No DLP: 1162.64 mGy.cm COMPARISON: 12/15/2023 Lower thorax: Lung bases are clear. Heart is normal size. Small hiatal hernia. Liver/biliary system: Liver is normal size. Mild coarse echotexture throughout the liver. There are s everal low-attenuation masses within the liver on the noncontrast exam. Low-attenuation mass in the l ateral segment of the LEFT lobe measures 1.7 x 1.4 cm. The units are elevated but there is minimal en hancement on the postcontrast exam. There are a few additional too small to characterize hypodensitie s. There is also a hemangioma in the LEFT lobe and in the posterior RIGHT lobe. Posterior RIGHT lobe hemangioma measures 2.7 x 1.4 cm. Normal portal vein. Gallbladder is negative. Normal spleen. No adrenal mass. There are tiny hypodensities within each kid randi which are probably cysts. Normal aorta and mesenteric arteries. Noncontrast evaluation of the GI tract is negative. There is no obstruction. CT/CT abdomen wo/w con [id number] IMPRESSION: 1. Multiple liver lesions identified. Some of these are too small to character ize and probably cysts. There are 2 hepatic hemangiomas. 2. Low-attenuation mass in the lateral segment LEFT lobe of the liver measures 1.7 x 1.4 cm. Hounsfield units are elevated but there is no significant amount of enhancement on the postcontrast study. Favor this is probably a complex cys t. With no history of malignancy less likely metastatic disease. Recommend ultr asound evaluation to attempt documentation of a cyst. If documentation by ultra sound is not sufficient 3-month hepatic CT follow-up recommended.
[2023-12-27] MEDS: iohexol 350 mg/mL 500 mL Btl (per mL) IV (08:59)
== END 2023-12-27 08:24 | disposition home or self-care (01) ==
LOC: RAD 08:25
PROVIDERS: PCP Nurse Practitioner; Visit Provider Nurse Practitioner
DX: D18.03 Hemangioma of intra-abdominal structures (principal); R16.0 Hepatomegaly, not elsewhere classified; K76.9 Liver disease, unspecified
CPT/HCPCS: 74170; Q9967

== ENCOUNTER → 2024-01-28 10:16 | Outpatient (BNVA) | payer SELFPAY | PROVIDERS: PCP Nurse Practitioner; Visit Provider Nurse Practitioner | DX: K76.0 Fatty (change of) liver, not elsewhere classified (principal) | CPT/HCPCS: 80053; 85025 ==

== ENCOUNTER → 2024-02-18 10:29 | Outpatient (BNVA) | payer SELFPAY | PROVIDERS: PCP Nurse Practitioner; Visit Provider Obstetrics & Gynecology | DX: D25.2 Subserosal leiomyoma of uterus (principal); N83.201 Unspecified ovarian cyst, right side; N92.6 Irregular menstruation, unspecified; N93.9 Abnormal uterine and vaginal bleeding, unspecified; R93.89 Abnormal findings on diagnostic imaging of other specified body structures | CPT/HCPCS: 76830 ==

== ENCOUNTER 2024-02-28 07:08 | Day surgery (SDC) | payer SELFPAY ==
[2024-02-28] VITALS (10 sets, daily range): BP systolic 109–129; BP diastolic 65–87; PULSE 67–118; RESP 14–22; TEMP 36.3–37.3; O2SAT 95–98; BMI 25.8
--- NOTE | 2024-02-28 02:21 | W.PM.OPSFHP ---
Same Day Surgery H&P Indication for Procedure/HPI DATE OF PROCEDURE: February 28, 2024 CHIEF COMPLAINT/INDICATIONFOR SURGICAL PROCEDURE: abnormal uterine bleeding endometrial polyp PREOP DIAGNOSIS: abnormal uterine bleeding; endometrial polyp PLANNED PROCEDURE: Operation Date: 02/28/24 08:50 Proposed Procedures p Hysteroscopy Hysteroscopy w/ Endometrial Sampling 98410, N93.9(Not Applicable) - Krunal Sarmiento MD s Possible endometrial Poylpectomy(Not Applicable) - Krunal Sarmiento MD 38 y.o. h/o BTL with history of abnormal uterine bleeding x one year and endometrial polyp seen on pelvic sono Medications/Allergies* Allergies/Adverse Reactions Allergy/AdvReac Type Severity Reaction Status Date / Time tramadol Allergy Unknown Verified 02/27/24 10:28 vancomycin Allergy caused red Verified 02/27/24 10:25 man syndrome Pertinent History/Comorbid Conditions* Family History (Updated 01/16/24 @ 15:03 by Alvina Todd LPN) Heart disease Grandmother Hypertension Mother Uterine cancer Mother Grandmother Denies family history of Colon cancer Ovarian cancer Prostate cancer Diabetes Breast cancer Thyroid disease Stroke Social History Smoking and tobacco/nicotine status: current every day tobacco/nicotine user Alcohol intake: never Current gender identity: Female Pertinent Exam Findings alert, oriented x 3, clear to auscultation bilaterally and regular rate & rhythm Recommendations Surgery/Procedure today Coding Level of Care Code Acute Code for Chg Fwd Time Spent (min) 20
[2024-02-28] MEDS: sodium chloride 0.9% 1,000 ML 30 ML IV (07:47)
[2024-02-28 08:22] LABS: OR HCG Qualitative Urine Negative (Negative)
--- NOTE | 2024-02-28 09:36 | W.PM.OPSUD ---
Surgery/Procedure H&P Update DATE OF PROCEDURE: February 28, 2024 DATE H&P PERFORMED: 02/27/24 H&P UPDATE INFORMATION: I have reviewed H&P completed within last 30 days, I have examined patient prior to procedure and No changes to prior documentation PREOP DIAGNOSIS: abnormal uterine bleeding PLANNED PROCEDURE: Operation Date: 02/28/24 08:50 Proposed Procedures p Hysteroscopy Hysteroscopy w/ Endometrial Sampling 67899, N93.9(Not Applicable) - Krunal Sarmiento MD s Possible endometrial Poylpectomy(Not Applicable) - Krunal Sarmiento MD
--- NOTE | 2024-02-28 09:47 | ANES.PREANE2 ---
Pre-Anesthetic Assessment Height/Weight: Height 5 ft 6 in Weight 160 lb Temp Pulse Resp BP Pulse Ox O2 Del Method 97.3 F L 84 16 126/76 98 Room Air 02/28/24 07:21 02/28/24 07:21 02/28/24 07:21 02/28/24 07:21 02/28/24 07:21 02/28/24 07:28 Preop Diagnosis: abnormal uterine bleeding Operation Date: 02/28/24 08:50 Proposed Procedures p Hysteroscopy Hysteroscopy w/ Endometrial Sampling 47862, N93.9(Not Applicable) - Krunal Sarmiento MD s Possible endometrial Poylpectomy(Not Applicable) - Krunal Sarmiento MD Was Beta Raúl taken within 24 hours: N/A Was Clonidine taken within 24 hours: N/A Last intake: Intake Last Liquid Date 02/28/24 Last Liquid Time 06:00 Last Solid Date 02/27/24 Last Solid Time 23:00 Social Tobacco and No alcohol Exam alert, oriented x 3, clear to auscultation bilaterally and regular rate & rhythm Airway Submandibular: within normal limits Cervical ROM: within normal limits Mallampati: Class II Dentition: full Anesthetic Plan ASA status: 2 Anesthesia: General Other: Patient woke up during colonoscopy, very traumatized from this experience NPO since yesterday Currently experiencing menorrhagia, states that she will bleed for 40 days when her period starts Labs 01/28/2024 reviewed hemoglobin 14.3 at that time Current smoker Denies any cardiac issues METs greater than 4 Plan for general anesthesia Medications/Allergies Home Medications Medication Instructions Recorded Confirmed Last Taken Type clonazepam 0.5 mg tablet 0.5 mg PO BID #60 tabs 01/10/24 02/27/24 02/26/24 Rx ondansetron HCl 4 mg tablet 4 mg PO Q8H #30 tabs 01/28/24 02/27/24 Unknown Rx Allergies Allergy/AdvReac Type Severity Reaction Status Date / Time tramadol Allergy Unknown Verified 02/27/24 10:28 vancomycin Allergy caused red Verified 02/27/24 10:25 man syndrome Current Medications Generic Name Dose Route Start Last Admin Trade Name Freq PRN Reason Stop Dose Admin Sodium Chloride 1,000 mls @ 30 mls/hr 02/28/24 07:15 02/28/24 07:47 Sodium Chloride 0.9% IV 02/29/24 07:14 30 mls/hr .Q24H PAULETTE Administration PFSH Anesthesia Family History Mother Uterine cancer Hypertension Grandmother Uterine cancer Heart disease Denies family history of Colon cancer Ovarian cancer Prostate cancer Diabetes Breast cancer Thyroid disease Stroke Social History (Updated 02/01/24 @ 09:40 by LEXY Serna) Smoking and tobacco/nicotine status: current every day tobacco/nicotine user Alcohol intake: never Current gender identity: Female Female Reproductive History Spontaneous abortions: No Data Anesthesia Cardiac Studies: No Data to Display
--- NOTE | 2024-02-28 10:07 | PM.OP ---
Operative Report Date of procedure: February 28, 2024 Pre-op diagnosis: abnormal uterine bleeding Post-op diagnosis: abnormal uterine bleeding 2-3 cm endometrial polyp Post-op findings: one 2-3 cm endometrial polyp Minimal endometrial tissue Procedure done: Hysteroscopy Endometrial sampling and polypectomy with Myosure Implants: none Specimens removed/disposition: endometrial tissue Surgeon: Krunal Sarmiento MD Anesthesia: MAC Estimated blood loss (mL): 0 Complications: none Findings: one 2-3 cm endometrial polyp Minimal endometrial tissue Condition: stable Disposition: PACU Brief History: 38 y.o. with abnormal uterine bleeding Procedure: Informed consent signed. Patient was taken to the operating room. Anesthesia was induced. Patient was placed in dorsolithotomy position, prepped and draped for hysteroscopy. A bivalve speculum was placed in the vagina. The cervix and vagina were normal. The anterior lip of the cervix was grasped with a sharp-toothed tenaculum. The cervix was serially dilated with Hegar dilators. The uterus was sounded to 8 cm. A hysteroscope was placed into the endometrial cavity. There was one 3 cm smooth-appearing endometrial polyp. Minimal endometrial tissue was seen. The endocervical canal was normal. The endometrial cavity was otherwise normal. A Myosure was then inserted and the endometrial polyp was removed and sent to pathology. Endometrial sampling was also done. The endometrial cavity was seen to be intact. The hysteroscope and Myosure were then removed. Endometrial tissue was sent to pathology. The sharp-toothed tenaculum was removed. There was no bleeding from the endometrial cavity or cervix. The patient was then placed supine and awakened and taken to the PACU. Postop condition: stable EBL: none Sponge and instruments counts were normal x 2 Complications: none
[2024-02-28] MEDS: fentaNYL 50 mcg/mL INJ 2mL IVP (11:19)
[2024-02-28] MEDS: HYDROcodone-acetaminophen 5-325 mg Tablet 1 TAB PO (12:01)
--- NOTE | 2024-02-28 12:43 | ANE.PACU2 ---
Inpatient post-anesthesia follow up: Airway intact: Yes Vital signs: Temperature 98.7 F Pulse Rate 67 Respiratory Rate 16 Blood Pressure 123/78 Pulse Oximetry 98 Oxygen Delivery Me thod Room Air Oxygen Flow Rate 8 Fraction of Inspir ed Oxygen Hydration adequate: Yes Nausea and vomiting: No Pain level: 1 Mental status: Baseline
== END 2024-02-28 12:44 | disposition home or self-care (01) ==
PROVIDERS: Student in an Organized Health Care Education/Training Program; PCP Nurse Practitioner; Visit Provider Obstetrics & Gynecology
PROC: 0UJD8ZZ Inspection of Uterus and Cervix, Via Natural or Artificial Opening Endoscopic (ICD-10-PCS; CPT 58555; principal; 2024-02-28 08:40)
PROC: (CPT 58558; 2024-02-28 08:40)
DX: N93.9 Abnormal uterine and vaginal bleeding, unspecified (principal); N84.0 Polyp of corpus uteri; F17.200 Nicotine dependence, unspecified, uncomplicated
CPT/HCPCS: 58558; 81025; 88305; J1100; J1200; J1885; J2250; J2405; J2704; J3010; J7030

== ENCOUNTER 2024-03-07 22:58 | Emergency (ER) | payer SELFPAY ==
[2024-03-07 23:01] VITALS: BP 150/72; PULSE 154; RESP 22; TEMP 36.7; O2SAT 99; BMI 25.2
[2024-03-07 23:34] LABS: Basophils % 0.4 %; Eosinophils # 0.1 10^3/uL (0.0-0.8); Eosinophils % 1.1 %; Hematocrit 41.4 % (36-47); Lymphocytes # 2.4 10^3/uL (0.8-4.8); Lymphocytes % 23.7 %; Mean Corpuscular HGB Conc 34.1 g/dL (30-55); Mean Corpuscular Hemoglobin 28.8 pg (27-33); Mean Corpuscular Volume 84.7 fl (85-98); Mean Platelet Volume 10.4 fL (7.4-10.4); Monocytes # 0.8 10^3/uL (0.2-0.9); Monocytes % 7.9 %; Neutrophils % 66.7 %; Nucleated Red Blood Cells % 0 %; Platelet Count 321 10^3/cmm (157-399); Red Blood Count 4.89 10^6/uL (3.85-5.65); Red Cell Distribution Width 11.4 % (12.1-15.1)
[2024-03-07 23:40] VITALS: BP 106/82; PULSE 97; RESP 16; O2SAT 99
[2024-03-07 23:45] LABS: INR 0.99 (0.8-1.2)
--- NOTE | 2024-03-07 23:47 | W.ED.FEMALGU ---
HPI - Female Genitourinary General: Chief complaint: Vaginal Bleeding Stated complaint: [address] SARMIENTO op severe heavy bleeding Time Seen by Provider: 03/07/24 23:18 History of Present Illness: Patient had a hysteroscopy with fibroidectomy approximately days ago by Dr. Sarmiento. Patient said she was okay the first day but then started having heavy bleeding after that. Patient is now getting lightheaded dizzy when she stands up and her heart starting to race. Patient was going through 1 pad an hour but has gone through 3 pads in the last hour. Related Data Previous Rx's Medication Instructions Recorded clonazepam 0.5 mg tablet 0.5 mg PO BID #60 tabs 01/10/24 ondansetron HCl 4 mg tablet 4 mg PO Q8H #30 tabs 01/28/24 oxycodone-acetaminophen 5 mg-325 1 tab PO BID PRN pain #14 tabs 02/28/24 mg tablet (Percocet) Allergies Allergy/AdvReac Type Severity Reaction Status Date / Time tramadol Allergy Unknown Verified 03/07/24 23:00 vancomycin Allergy caused red Verified 03/07/24 23:00 man syndrome Review of Systems General: Reports: 10 or more systems reviewed and unremarkable except in HPI and below PFSH ED PFSH: Family History Mother Uterine cancer Hypertension Grandmother Uterine cancer Heart disease Denies family history of Colon cancer Ovarian cancer Prostate cancer Diabetes Breast cancer Thyroid disease Stroke Social History Smoking and tobacco/nicotine status: current every day tobacco/nicotine user Alcohol intake: never Current gender identity: Female Female Reproductive History: Spontaneous abortions: No Physical Exam Const: COMMON NORMALS: no acute distress, average body habitus, patient oriented x3, no limitations, healthy appearing, alert and well nourished HENMT: COMMON NORMALS: normocephalic, atraumatic, hearing grossly normal bilaterally, external ears normal, Normal external nose present and moist oral mucous membranes HEAD & SCALP: normocephalic and atraumatic NOSE: Normal external nose present EXTERNAL EAR: Yes external ears normal Neck/C-Spine: COMMON NORMALS: full ROM, no lymphadenopathy, supple, no meningeal signs, no JVD and Thyroid normal THYROID: Thyroid normal Chest: COMMONS NORMALS: normal inspection of the chest and normal palpation of entire chest wall Resp: COMMON NORMALS: normal respiratory effort, No retractions, No use of accessory muscles and clear to auscultation bilaterally AUSCULTATION: clear to auscultation bilaterally Cardio: COMMON NORMALS: no JVD, regular rate, regular rhythm, S1 normal heart sound present, S2 normal heart sound present, No gallops present (Cardio), No clicks present (Cardio), No murmurs present (Cardio) and No rub (Cardio) RATE: regular rate RHYTHM: regular rhythm HEART SOUNDS: S1 normal heart sound present and S2 normal heart sound present GI: COMMON NORMALS: Normal to inspection, nondistended, normoactive bowel sounds present, Soft to palpation, No hepatosplenomegaly present and no masses PALPATION: Yes Soft to palpation and Yes No hepatosplenomegaly present Neuro: COMMON NORMALS: patient oriented x3 SENSORIUM/ORIENTATION: Yes alert MENINGEAL SIGNS: Yes no meningeal signs Course Vital Signs: Vital signs: Vital Signs Temperature 98.0 F 03/07/24 23:01 Pulse Rate 76 03/08/24 00:25 Respiratory Rate 16 03/08/24 00:25 Blood Pressure 127/73 03/08/24 00:25 Pulse Oximetry 100 03/08/24 00:25 Oxygen Delivery Me thod Room Air 03/08/24 00:25 MDM - Female Medical Decision Making Upon further talking the patient patient going through divorce and has had having a very stressful episode now. Results was discussed with the patient had a were normal. Patient's hemoglobin was 14.1. Patient started crying hysterically and said nobody wants to do anything for her I told her we called the OB on-call but they probably just tell her to follow-up with her OB who is Dr. Sarmiento on Sunday. She says she just wants to leave. She is wants us to discharge her and patient will be discharged. Medical Records I reviewed the patient's medical records. Lab Data I reviewed the patient's lab results. 03/07/24 23:28 03/07/24 23:28 Laboratory Results WBC 10.20 10^3/uL (3.29-11.43) 03/07/24 23:28 RBC 4.89 10^6/uL (3.85-5.65) 03/07/24: Hgb 14.10 g/dL (11.27-16.99) 03/07/24: Hct 41.4 % (36-47) 03/07/24: MCV 84.7 fl (85-98) L 03/07/24: MCH 28.8 pg (27-33) 03/07/24: MCHC 34.1 g/dL (30-55) 03/07/24: RDW 11.4 % (12.1-15.1) L 03/07/24: Plt Count 321 10^3/cmm (157-399) 03/07/24 MPV 10.4 fL (7.4-10.4) 03/07/24 Neut % (Auto) 66.7 % 03/07/24: Lymph % (Auto) 23.7 % 03/07/24: [place] % (Auto) 7.9 % 03/07/24: Eos % (Auto) 1.1 % 03/07/24: Baso % (Auto) 0.4 % 03/07/24 Neut # (Auto) 6.80 10^3/uL (1.8-7.7) 03/07/24 Lymph # (Auto) 2.4 10^3/uL (0.8-4.8) 03/07/24: [place] # (Auto) 0.8 10^3/uL (0.2-0.9) 03/07/24: Eos # (Auto) 0.1 10^3/uL (0.0-0.8) 03/07/24 Baso # (Auto) 0.0 10^3/uL (0.0-0.1) 03/07/24: Nucleated RBC % (auto) 0 % 03/07/24 Nucleated RBCs # 0.0 /100WBC 03/07/24: PT 13.40 SECONDS (12.1-14.9) 03/07/24: INR 0.99 (0.8-1.2) 03/07/24: Sodium 133 mmol/L (136-145) L 11/08/24 23:28 Potassium 3.4 mmol/L (3.5-5.1) L 03/07/24 23:28 Chloride 98 mmol/L (98-107) 03/07/24 23:28 Carbon Dioxide 21 mmol/L (22-29) L 03/07/24 23:28 Anion Gap 17.4 (5-19) 03/07/24 23:28 BUN 11 mg/dL (6-20) 03/07/24 23:28 Creatinine 0.8 mg/dL (0.5-0.9) 03/07/24 23:28 GFR Calculation 81.2 mL/min (90-130) L 03/07/24 23:28 Glucose 114 mg/dL (65-115) 03/07/24 23:28 Calculated Osmolality 276 mOsm/kg (285-295) L 03/07/24 23:28 Calcium 8.8 mg/dL (8.5-10.5) 03/07/24 23:28 Total Bilirubin 0.9 mg/dL (0.15-1.2) 03/07/24 23:28 AST 8 U/L (0-32) 03/07/24 23:28 ALT 11 U/L (0-33) 03/07/24 23:28 Alkaline Phosphatase 72 U/L (35-105) 03/07/24 23:28 Total Protein 6.8 g/dL (6.6-8.7) 03/07/24 23:28 Albumin 4.6 g/dL (3.5-5.2) 03/07/24 23:28 Globulin 2.2 g/dL (1.3-4.6) 03/07/24 23:28 No radiology studies performed this visit Discharge Plan Discharge Patient Disposition: Home Clinical Impression: Postoperative vaginal bleeding Condition: Stable Prescriptions: No Action ondansetron HCl 4 mg tablet 4 mg PO Q8H Qty: 30 0RF clonazepam 0.5 mg tablet 0.5 mg PO BID Qty: 60 1RF oxycodone-acetaminophen [Percocet] 5-325 mg tablet 1 tab PO BID PRN (Reason: pain) Qty: 14 0RF Discharge Orders: Discharge ED (Routine); Ordered 03/08/24 Ordered By: Andrea De La Cruz Referrals: Fair,Keiry, CATEGORY MANAGER [Primary Care Provider] - 1 week Activity Restrictions/Additional Instructions: Your hemoglobin is 14.1 which is within normal limits. Please follow-up with Dr. Sarmiento on Sunday. Call his office to arrange appointment to talk to him about the continued bleeding. Coding Level of Care Code ED Internet Marketing Director for Bisi Cheema
[2024-03-07 23:50] LABS: Alanine Aminotransferase 11 U/L (0-33); Albumin Level 4.6 g/dL (3.5-5.2); Alkaline Phosphatase 72 U/L (35-105); Anion Gap 17.4 (5-19); Aspartate Amino Transferase 8 U/L (0-32); Blood Urea Nitrogen 11 mg/dL (6-20); Calcium 8.8 mg/dL (8.5-10.5); Carbon Dioxide 21 mmol/L (22-29); Chloride 98 mmol/L (98-107); Creatinine Clr Calc Pharmacy 98.0442; Globulin 2.2 g/dL (1.3-4.6); Glomerular Filtration Rate 81.2 mL/min (90-130); Glucose 114 mg/dL (65-115); Osmolality Calculated 276 mOsm/kg (285-295); Potassium 3.4 mmol/L (3.5-5.1); Sodium 133 mmol/L (136-145); Total Bilirubin 0.9 mg/dL (0.15-1.2); Total Protein 6.8 g/dL (6.6-8.7)
[2024-03-07] MEDS: sodium chloride 0.9% 1,000 ML 999 ML IV (23:52)
[2024-03-07] MEDS: ondansetron 2 mg/ML SDV 2 mL 4 MG IVP (23:53)
[2024-03-07 23:55] VITALS: BP 127/86; PULSE 82; RESP 16; O2SAT 96
[2024-03-08 00:04] VITALS: RESP 16
[2024-03-08] MEDS: morphine 4 mg/mL SDV 1 mL IVP (00:04)
[2024-03-08 00:25] VITALS: BP 127/73; PULSE 76; RESP 16; O2SAT 100
[2024-03-08 01:06] VITALS: BP 113/74; PULSE 74; RESP 16; O2SAT 100
== END 2024-03-08 01:15 | disposition home or self-care (01) ==
PROVIDERS: Emergency Provider Emergency Medicine; PCP Nurse Practitioner
DX: N93.8 Other specified abnormal uterine and vaginal bleeding (principal); Z72.0 Tobacco use
CPT/HCPCS: 80053; 85025; 85610; 96361; 96374; 96375; 99284; J2270; J2405; J7030

== ENCOUNTER → 2024-04-29 08:37 | Outpatient (BNVA) | payer BC, SELFPAY | PROVIDERS: PCP Nurse Practitioner; Visit Provider Nurse Practitioner | DX: R07.9 Chest pain, unspecified (principal) | CPT/HCPCS: 93005 ==

== ENCOUNTER 2024-05-01 16:59 | Emergency (ER) | payer BC, MEDICAID, SELFPAY ==
--- NOTE | 2024-05-01 17:06 | ECG_ITS ---
[facility]: [facility] Pat Name: Cathie Polk Department: Room: Gender: Female Talent Development Director: : 1985 Requested By: Wendy Sanchez Order Number: [id number] Ramu MD: Bianca Arteaga M.D. Measurements Intervals Baylis Rate: 93 P: 53 CT: 142 QRS: 48 QRSD: 82 T: 42 QT: 346 QTc: 430 Interpretive Statements SINUS RHYTHM POSSIBLE LEFT ATRIAL ENLARGEMENT [-0.1mV P-WAVE IN V1/V2] Compared to ECG 12/30/2020 16:46:30 No significant changes Electronically Signed On 05-02-2024 21:34:44 HEEL COVERER by Bianca Arteaga M.D. [email or web address]
[2024-05-01 17:10] VITALS: BP 129/83; PULSE 96; RESP 26; TEMP 36.7; O2SAT 99; BMI 25.8
--- NOTE | 2024-05-01 18:05 | XRR_ITS ---
PROCEDURE INFORMATION: Exam: XR Chest Exam date and time: 05/01/2024 6:24 PM Age: 38 years old Clinical indication: Pain; Chest pressure; Additional info: Chest pains and weakness TECHNIQUE: Imaging protocol: Radiologic exam of the chest. Views: 1 view. COMPARISON: CR XR chest 2V* [id number] 12/30/2020 4:47 PM FINDINGS: Lungs: Stable pulmonary nodule left mid lung zone which represent granuloma. No consolidation. No significant interval changes. Pleural spaces: Unremarkable. No pleural effusion. No pneumothorax. Heart/Mediastinum: Unremarkable. No cardiomegaly. Bones/joints: No acute bony abnormalities or significant interval changes detected. XR/XR chest 1V portable [id number] IMPRESSION: Stable chest. No active disease.
[2024-05-01 19:08] LABS: Basophils % 0.4 %; Eosinophils # 0.1 10^3/uL (0.0-0.8); Eosinophils % 0.6 %; Hematocrit 40.6 % (36-47); Lymphocytes # 2.3 10^3/uL (0.8-4.8); Lymphocytes % 23.5 %; Mean Corpuscular HGB Conc 33.3 g/dL (30-55); Mean Corpuscular Volume 87.3 fl (85-98); Mean Platelet Volume 10.5 fL (7.4-10.4); Monocytes # 0.7 10^3/uL (0.2-0.9); Monocytes % 6.6 %; Neutrophils # 6.84 10^3/uL (1.8-7.7); Neutrophils % 68.7 %; Nucleated Red Blood Cells % 0 %; Platelet Count 289 10^3/cmm (157-399); Red Blood Count 4.65 10^6/uL (3.85-5.65); Red Cell Distribution Width 11.9 % (12.1-15.1); White Blood Count 9.96 10^3/uL (3.29-11.43)
[2024-05-01 19:27] LABS: Troponin(5th) Baseline < 6 ng/L (0-10)
[2024-05-01 19:34] LABS: Alanine Aminotransferase 8 U/L (0-33); Albumin Level 4.4 g/dL (3.5-5.2); Alkaline Phosphatase 66 U/L (35-105); Aspartate Amino Transferase 7 U/L (0-32); Blood Urea Nitrogen 8 mg/dL (6-20); Carbon Dioxide 24 mmol/L (22-29); Chloride 101 mmol/L (98-107); Creatinine Clr Calc Pharmacy 113.3239; Globulin 2.4 g/dL (1.3-4.6); Glomerular Filtration Rate 94.7 mL/min (90-130); Glucose 98 mg/dL (65-115); NT Pro B Type Natriuretic Pept < 36 pg/mL (0-125); Osmolality Calculated 278 mOsm/kg (285-295); Sodium 135 mmol/L (136-145); Total Bilirubin 0.7 mg/dL (0.15-1.2); Total Protein 6.8 g/dL (6.6-8.7)
--- NOTE | 2024-05-01 19:47 | W.ED.CHESTPA ---
HPI - Chest Pain General: Chief Complaint: Chest Pain Stated Complaint: cp,light headed Time Seen by Provider: 05/01/24 19:40 History of Present Illness: 38-year-old female with a history of anxiety who presents emergency room with chest pain. She seen her primary about this a couple days ago and was told that if it started to radiate she should come to the emergency room. Says today she has central chest pressure that radiated to her right chest and neck.. No cough. No fevers. No lower extremity swelling. No shortness of breath. Related Data Previous Rx's Medication Instructions Recorded ondansetron HCl 4 mg tablet 4 mg PO Q8H #30 tabs 01/28/24 medroxyprogesterone 10 mg tablet 10 mg PO DAILY #30 tabs 03/11/24 (Provera) clonazepam 0.5 mg tablet 0.5 mg PO BID #60 tabs 04/01/24 omeprazole 40 mg capsule,delayed 40 mg PO DAILY #15 caps 04/29/24 release Allergies Allergy/AdvReac Type Severity Reaction Status Date / Time tramadol Allergy Unknown Verified 05/01/24 17:17 vancomycin Allergy caused red Verified 05/01/24 17:17 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 Skin symptoms: Negative except as documented in HPI. Eye symptoms: Negative except as documented in HPI. ENMT symptoms: Negative except as documented in HPI. Respiratory symptoms: Negative except as documented in HPI. Cardiovascular symptoms: Negative except as documented in HPI. Gastrointestinal symptoms: Negative except as documented in HPI. Genitourinary symptoms: Negative except as documented in HPI. Musculoskeletal symptoms: Negative except as documented in HPI. Neurologic symptoms: Negative except as documented in HPI. Psychiatric symptoms: Negative except as documented in HPI. Endocrine symptoms: Negative except as documented in HPI. PFSH ED PFSH: Medical History Psychiatric care Family History Mother Uterine cancer Hypertension Grandmother Uterine cancer Heart disease Denies family history of Colon cancer Ovarian cancer Prostate cancer Diabetes Breast cancer Thyroid disease Stroke Social History Smoking and tobacco/nicotine status: current every day tobacco/nicotine user e-cigarettes E-Cigarette Details: e-cigarette and with nicotine Alcohol intake: never Current gender identity: Female Female Reproductive History: Spontaneous abortions: No Physical Exam Narrative: EXAM NARRATIVE: General: Alert, no acute distress. Skin: Warm, dry. Head: Normocephalic, atraumatic. Neck: Supple, trachea midline. Eye: Extraocular movements are intact. Ears, nose, mouth and throat: mucosa moist. Cardiovascular: Regular, Normal peripheral perfusion. No murmur. Respiratory: Lungs are clear to auscultation, respirations are non-labored, breath sounds are equal, Symmetrical chest wall expansion. Gastrointestinal: Soft, Nontender, Non distended Musculoskeletal: Normal ROM, no deformity. Neurological: Alert and oriented, No focal neurological deficit observed. Psychiatric: Cooperative, appropriate mood & affect. Course Vital Signs: Vital signs: Vital Signs Temperature 98.0 F 05/01/24 17:10 Pulse Rate 96 05/01/24 17:10 Respiratory Rate 26 H 05/01/24 17:10 Blood Pressure 129/83 05/01/24 17:10 Pulse Oximetry 99 05/01/24 17:10 Oxygen Delivery Me thod Room Air 05/01/24 17:10 MDM - Chest Pain Medical Decision Making Differential diagnosis for patient with chest pain includes but is not limited to and based on the above HPI, review of systems and physical exam: Pneumonia. unstable angina. angina. Acute coronary syndrome / CA. Pulmonary embolism. Costochondritis / musculoskeletal. Pleurisy. Pericarditis. Esophageal spasm. Pancreatis. Cholecystitis. Orders placed to evaluate differential diagnosis based on the above differential, HPI and physical exam Chest x-ray: No acute process. No infiltrate. No pneumothorax. This was reviewed and interpreted by myself the emergency room physician. I also reviewed the radiology report. EKG: Time 1706. Rate 93. Normal sinus rhythm, No ST-T changes, no ectopy, normal CO & QRS intervals, This was reviewed and interpreted by the ER physician at 1710 Lab Review: Laboratory results were reviewed and interpreted by myself the emergency room physician. Lab work is unremarkable. No leukocytosis. No anemia. No renal failure. Troponin is negative. I reviewed the patient's medical record. Assessment and plan: Noncardiac chest pain - Discharged home - Discussed plan with patient. Answered any questions. - Evaluation and treatment of this problem were appropriate in the emergency setting. Lab Data 05/01/24 18:52 05/01/24 18:52 Laboratory Results WBC 9.96 10^3/uL (3.29-11.43) 05/01/24 18:52 RBC 4.65 10^6/uL (3.85-5.65) 05/01/24 18:52 Hgb 13.50 g/dL (11.27-16.99) 05/01/24 18:52 Hct 40.6 % (36-47) 05/01/24 18:52 MCV 87.3 fl (85-98) 05/01/24 18:52 MCH 29.0 pg (27-33) 05/01/24 18:52 MCHC 33.3 g/dL (30-55) 05/01/24 18:52 RDW 11.9 % (12.1-15.1) L 05/01/24 18:52 Plt Count 289 10^3/cmm (157-399) 05/01/24 18:52 MPV 10.5 fL (7.4-10.4) H 05/01/24 18:52 Neut % (Auto) 68.7 % 05/01/24 18:52 Lymph % (Auto) 23.5 % 05/01/24 18:52 [place] % (Auto) 6.6 % 05/01/24 18:52 Eos % (Auto) 0.6 % 05/01/24 18:52 Baso % (Auto) 0.4 % 05/01/24 18:52 Neut # (Auto) 6.84 10^3/uL (1.8-7.7) 05/01/24 18:52 Lymph # (Auto) 2.3 10^3/uL (0.8-4.8) 05/01/24 18:52 [place] # (Auto) 0.7 10^3/uL (0.2-0.9) 05/01/24 18:52 Eos # (Auto) 0.1 10^3/uL (0.0-0.8) 05/01/24 18:52 Baso # (Auto) 0.0 10^3/uL (0.0-0.1) 05/01/24 18:52 Nucleated RBC % (auto) 0 % 05/01/24 18:52 Nucleated RBCs # 0.0 /100WBC 05/01/24 18:52 Sodium 135 mmol/L (136-145) L 05/01/24 18:52 Potassium 4.0 mmol/L (3.5-5.1) 05/01/24 18:52 Chloride 101 mmol/L (98-107) 05/01/24 18:52 Carbon Dioxide 24 mmol/L (22-29) 05/01/24 18:52 Anion Gap 14.0 (5-19) 05/01/24 18:52 BUN 8 mg/dL (6-20) 05/01/24 18:52 Creatinine 0.7 mg/dL (0.5-0.9) 05/01/24 18:52 GFR Calculation 94.7 mL/min (90-130) 05/01/24 18:52 Glucose 98 mg/dL (65-115) 05/01/24 18:52 Calculated Osmolality 278 mOsm/kg (285-295) L 05/01/24 18:52 Calcium 9.0 mg/dL (8.5-10.5) 05/01/24 18:52 Total Bilirubin 0.7 mg/dL (0.15-1.2) 05/01/24 18:52 AST 7 U/L (0-32) 05/01/24 18:52 ALT 8 U/L (0-33) 05/01/24 18:52 Alkaline Phosphatase 66 U/L (35-105) 05/01/24 18:52 Troponin T Baseline < 6 ng/L (0-10) 05/01/24 18:52 NT-Pro-B Natriuret Pep < 36 pg/mL (0-125) 05/01/24 18:52 Total Protein 6.8 g/dL (6.6-8.7) 05/01/24 18:52 Albumin 4.4 g/dL (3.5-5.2) 05/01/24 18:52 Globulin 2.4 g/dL (1.3-4.6) 05/01/24 18:52 All radiology interpretation(s) finalized by discharge Discharge Plan Discharge Patient Disposition: Home Clinical Impression: Non-cardiac chest pain Condition: Stable Prescriptions: No Action ondansetron HCl 4 mg tablet 4 mg PO Q8H Qty: 30 0RF omeprazole 40 mg capsule,delayed release(DR/EC) 40 mg PO DAILY Qty: 15 0RF medroxyprogesterone [Provera] 10 mg tablet 10 mg PO DAILY Qty: 30 2RF clonazepam 0.5 mg tablet 0.5 mg PO BID Qty: 60 1RF Discharge Orders: Discharge ED (Routine); Ordered 05/01/24 Ordered By: Misty Kim Referrals: Keiry Noel FNP [Primary Care Provider] - Discharge Diet: Usual diet Discharge Activity: Increase activity as tolerated Patient Instructions: Noncardiac Chest Pain (ED), Opioid Safety, Pain Management Activity Restrictions/Additional Instructions: Thank you for choosing [facility] for your healthcare needs today. Please realize this is an emergency room and that we are providing you with a medical screening exam and this may not be complete and all inclusive of all the testing and or work up that you may need to determine your ailment or severity of your illness. You have been screened and evaluated and felt safe for discharge. Health conditions do change or evolve sometimes and as such it is important that you follow up with your Primary Doctor to be re checked, 3-5 days is a general good time frame for follow up. You are always welcome to return to the ED for re assessment if your symptoms are worsening or you have new concerns Coding Level of Care Code ED [employer] for Bisi Cheema
[2024-05-01 20:03] VITALS: BP 113/80; PULSE 98; O2SAT 100
== END 2024-05-01 20:05 | disposition home or self-care (01) ==
PROVIDERS: Nurse Practitioner; Emergency Provider Emergency Medicine; PCP Nurse Practitioner
DX: R07.89 Other chest pain (principal); F17.290 Nicotine dependence, other tobacco product, uncomplicated
CPT/HCPCS: 36415; 71045; 80053; 83880; 84484; 85025; 93005; 99285

== ENCOUNTER → 2024-08-18 11:12 | Outpatient (BNVA) | payer BC, SELFPAY | PROVIDERS: PCP Nurse Practitioner; Visit Provider Nurse Practitioner Psychiatric/Mental Health | DX: F31.13 Bipolar disorder, current episode manic without psychotic features, severe (principal); F41.1 Generalized anxiety disorder; F41.0 Panic disorder [episodic paroxysmal anxiety]; Z79.899 Other long term (current) drug therapy; F43.12 Post-traumatic stress disorder, chronic; F60.3 Borderline personality disorder; F17.290 Nicotine dependence, other tobacco product, uncomplicated | CPT/HCPCS: 80053; 80061; 83036 ==

== ENCOUNTER → 2024-10-20 10:57 | Outpatient (BNVA) | payer BC, SELFPAY | PROVIDERS: Visit Provider Nurse Practitioner Psychiatric/Mental Health | DX: Z79.899 Other long term (current) drug therapy (principal) | CPT/HCPCS: 80307 ==

== ENCOUNTER → 2024-11-17 14:29 | Outpatient (BNVA) | payer BC, SELFPAY | PROVIDERS: Visit Provider Nurse Practitioner Psychiatric/Mental Health | DX: F11.20 Opioid dependence, uncomplicated (principal) | CPT/HCPCS: 80307 ==

== ENCOUNTER → 2025-04-07 10:48 | Outpatient (BNVA) | payer BC, MEDICAID, SELFPAY | PROVIDERS: Visit Provider Obstetrics & Gynecology | DX: Z12.4 Encounter for screening for malignant neoplasm of cervix (principal) | CPT/HCPCS: 87624 ==